=== PATIENT | male | born 1980 | race Caucasian/White ===

== ENCOUNTER 2024-03-26 16:58 | Emergency (ER) | payer OTHER, SELFPAY ==
--- NOTE | 2024-03-26 17:10 | XRR_ITS ---
PROCEDURE INFORMATION: Exam: XR Right Shoulder Exam date and time: 03/26/2024 5:44 PM Age: 44 years old Clinical indication: Pain; Upper arm; Right TECHNIQUE: Imaging protocol: Radiologic exam of the right shoulder. Views: 2 or more views. COMPARISON: No relevant prior studies available. FINDINGS: Bones/joints: Normal mineralization and alignment. No evidence of acute fracture or dislocation. Soft tissues: The soft tissues are within normal limits. XR/XR shoulder RT min 2V* [id number] IMPRESSION: No evidence of acute fracture or dislocation.
[2024-03-26 17:31] VITALS: BP 135/91; PULSE 71; RESP 16; TEMP 37.1; O2SAT 96; BMI 26.6
--- NOTE | 2024-03-26 17:59 | W.ED.EXTPRO ---
Documented by User: [email or web address] Eaton 03/26/24 18:24 HPI - Extremity Problem General: Chief complaint: Extremity Problem,Nontraumatic Stated complaint: right shoulder pain Time Seen by Provider: 03/26/24 17:46 Source: patient Mode of arrival: ambulatory Limitations: no limitations History of Present Illness: Patient is a 44-year-old male presenting to the emergency department complaining of acute on chronic right shoulder pain for the past 2 weeks. Patient notes he initially injured the shoulder approximately 5-6 years ago while in the , and since has just dealt with it with Tylenol as needed. He states it has not causing too much issues until 2 weeks ago when it suddenly started hurting him and has been constant since. He denies any new injuries or trauma. He does state that the pain is to the posterior right shoulder and radiates down the tricep, and sometimes he feels tingling in his fingers. No other symptoms noted at this time. Pain is sharp, currently has the pain in the emergency department. MD Complaint: extremity pain and joint pain Onset (ago): week(s) Pain Consistency: constant Location: right Quality: sharp Radiation: distal Relieving factors: nothing Exacerbating factors: range of motion Associated symptoms: Deny chest pain, fever(s) or rash Review of Systems General: Reports: 10 or more systems reviewed and unremarkable except in HPI and below Const: Denies: fever(s), chills or fatigue Eyes: Denies: change in vision ENMT: Denies: throat pain, ear or mastoid pain or nasal discharge Card: Denies: chest pain, palpitations, swelling of feet/ankles or lightheadedness Resp: Denies: dyspnea, productive cough or wheezing GI: Denies: abdominal pain, nausea, vomiting, diarrhea or constipation : Denies: flank pain, difficulty urinating, dysuria or urinary frequency Musc: Reports: extremity pain and joint pain; Denies: neck pain or back pain Skin/Breast: Denies: rash Neuro: Reports: numbness in extremities and sensory changes; Denies: headache(s) or weakness in extremities Physical Exam Const: COMMON NORMALS: no acute distress, patient oriented x3 and no limitations GENERAL APPEARANCE: cooperative, comfortable and well developed ORIENTATION/CONSCIOUSNESS: Yes awake, Yes oriented to person, Yes oriented to place and Yes oriented to time HENMT: COMMON NORMALS: normocephalic, atraumatic and hearing grossly normal bilaterally HEAD & SCALP: normocephalic and atraumatic Eye: COMMON NORMALS: Equal, round and reactive pupils present, EOMs intact bilaterally and conjunctivae normal CONJUNCTIVA: Yes conjunctivae normal PUPIL: Yes Equal, round and reactive pupils present Neck/C-Spine: COMMON NORMALS: full ROM, supple and no JVD Resp: COMMON NORMALS: normal respiratory effort, No retractions, No use of accessory muscles and clear to auscultation bilaterally AUSCULTATION: clear to auscultation bilaterally Cardio: COMMON NORMALS: no JVD, regular rate, regular rhythm, No clicks present (Cardio), No murmurs present (Cardio) and No rub (Cardio) RATE: regular rate RHYTHM: regular rhythm Extremity: COMMON NORMALS: normal to inspection, full ROM and capillary refill normal NARRATIVE EXTREMITY EXAM: Mild tenderness to palpation of the right scapular spine. No obvious signs of trauma, bruising, or dislocation. Distal neurovascular exam is intact. Neuro: COMMON NORMALS: patient oriented x3, moves all extremities, no focal motor deficits and no sensory deficits noted SENSORIUM/ORIENTATION: Yes oriented to person, Yes oriented to place and Yes oriented to time Psych: COMMON NORMALS: mental status grossly normal and Normal thought process present THOUGHT PROCESS: Normal thought process present Skin: COMMON NORMALS: no rashes or lesions noted GENERAL SKIN EXAM: no rashes or lesions noted Course Vital Signs: Vital signs: Vital Signs Temperature 98.7 F 03/26/24 18:32 Pulse Rate 71 03/26/24 18:32 Respiratory Rate 16 03/26/24 18:32 Blood Pressure 135/91 03/26/24 18:32 Pulse Oximetry 96 03/26/24 18:32 Oxygen Delivery Me thod Room Air 03/26/24 17:31 MDM - Extremity (Nontraumatic) Medical Decision Making Patient presented with acute on chronic right shoulder pain, initial injury was in the multiple years ago. Vitals normal on arrival. X-ray not demonstrate any acute fractures or dislocations. Neurovascular exam was intact, and patient was only minimally tender to palpation about the right scapular spine. He does note improvement after receiving shot of Decadron and Toradol. Will send home with these as well as a muscle relaxer and refer to Ortho for any further imaging or management. Patient agrees with plan and reasons to return are discussed. Lab Data Radiology Impressions Shoulder X-Ray 03/26/24 17:10 IMPRESSION: No evidence of acute fracture or dislocation. All radiology interpretation(s) finalized by discharge Discharge Plan Discharge Patient Disposition: Home Clinical Impression: Chronic pain in right shoulder Condition: Stable Prescriptions: New cyclobenzaprine 10 mg tablet 10 mg PO TID 5 Days Qty: 15 0RF prednisone 20 mg tablet 60 mg PO ONCE 5 Days Qty: 15 0RF ketorolac 10 mg tablet 10 mg PO Q8H PRN (Reason: pain) Qty: 15 0RF No Action bupropion HCl 75 mg tablet 150 mg PO BID Rx Instructions: administer 6 hours apart cholecalciferol (vitamin D3) 50 mcg (2,000 unit) capsule 50 mcg PO DAILY omeprazole 20 mg capsule,delayed release(DR/EC) 20 mg PO DAILY trazodone 100 mg tablet 100 mg PO ONCE PRN Discharge Orders: Discharge ED (Routine); Ordered 03/26/24 Ordered By: Samson Alas Referrals: Samson Yun MD [Primary Care Provider] - Discharge Diet: Usual diet Discharge Activity: Increase activity as tolerated Patient Instructions: Shoulder Pain (ED), Pain Management Activity Restrictions/Additional Instructions: Prednisone, Toradol, muscle relaxer as directed. Follow-up with Ortho as needed. Gentle range of motion exercises. Ice for added relief. Return with any new or concerning symptoms. Coding Level of Care Code ED Investigator Cash Shortage for Chg Fwd Documented by User: Neal Ortiz DO 03/27/24 07:07 HPI - Extremity Problem General: Chief complaint: Extremity Problem,Nontraumatic Stated complaint: right shoulder pain Time Seen by Provider: 03/26/24 17:46 Course Vital Signs: Vital signs: Vital Signs Temperature 98.7 F 03/26/24 18:32 Pulse Rate 71 03/26/24 18:32 Respiratory Rate 16 03/26/24 18:32 Blood Pressure 135/91 03/26/24 18:32 Pulse Oximetry 96 03/26/24 18:32 Oxygen Delivery Me thod Room Air 03/26/24 17:31 MDM - Extremity (Nontraumatic) Medical Decision Making Patient presented with acute on chronic right shoulder pain, initial injury was in the multiple years ago. Vitals normal on arrival. X-ray not demonstrate any acute fractures or dislocations. Neurovascular exam was intact, and patient was only minimally tender to palpation about the right scapular spine. He does note improvement after receiving shot of Decadron and Toradol. Will send home with these as well as a muscle relaxer and refer to Ortho for any further imaging or management. Patient agrees with plan and reasons to return are discussed. Chart reviewed Lab Data Radiology Impressions Shoulder X-Ray 03/26/24 17:10 IMPRESSION: No evidence of acute fracture or dislocation. Discharge Plan Discharge Patient Disposition: Home Clinical Impression: Chronic pain in right shoulder Condition: Stable Prescriptions: New cyclobenzaprine 10 mg tablet 10 mg PO TID 5 Days Qty: 15 0RF prednisone 20 mg tablet 60 mg PO ONCE 5 Days Qty: 15 0RF ketorolac 10 mg tablet 10 mg PO Q8H PRN (Reason: pain) Qty: 15 0RF No Action bupropion HCl 75 mg tablet 150 mg PO BID Rx Instructions: administer 6 hours apart cholecalciferol (vitamin D3) 50 mcg (2,000 unit) capsule 50 mcg PO DAILY omeprazole 20 mg capsule,delayed release(DR/EC) 20 mg PO DAILY trazodone 100 mg tablet 100 mg PO ONCE PRN Discharge Orders: Discharge ED (Routine); Ordered 03/26/24 Ordered By: Samson Alas Referrals: Samson Yun MD [Primary Care Provider] - Discharge Diet: Usual diet Discharge Activity: Increase activity as tolerated Patient Instructions: Shoulder Pain (ED), Pain Management Activity Restrictions/Additional Instructions: Prednisone, Toradol, muscle relaxer as directed. Follow-up with Ortho as needed. Gentle range of motion exercises. Ice for added relief. Return with any new or concerning symptoms. Coding Level of Care Code ED Investigator Cash Shortage for Brunilda Staples
[2024-03-26] MEDS: dexamethasone 10 mg/mL INJ 8 MG IM (18:06)
[2024-03-26] MEDS: ketorolac 60 mg/2 mL INJ IM (18:07)
[2024-03-26 18:32] VITALS: BP 135/91; PULSE 71; RESP 16; TEMP 37.1; O2SAT 96
--- NOTE | 2024-03-28 20:31 | DCPLANNER ---
Message sent to Ortho for referral
== END 2024-03-26 18:33 | disposition home or self-care (01) ==
PROVIDERS: Emergency Provider Physician Assistant; PCP Family Medicine
DX: G89.29 Other chronic pain (principal); M25.511 Pain in right shoulder
CPT/HCPCS: 73030; 96372; 99284; J1100; J1885

== ENCOUNTER 2024-09-23 20:59 | Emergency (ER) | payer OTHER, SELFPAY ==
[2024-09-23] VITALS (7 sets, daily range): BP systolic 109–125; BP diastolic 80–90; PULSE 63–120; RESP 18; TEMP 36.7; O2SAT 95–99; BMI 26.4
--- NOTE | 2024-09-23 21:20 | XRR_ITS ---
PROCEDURE INFORMATION: Exam: XR Right Finger(s) Exam date and time: 09/23/2024 9:32 PM Age: 44 years old Clinical indication: Injury or trauma; Other: Smashed middle and ring finger with table; Blunt trauma (contusions or hematomas); Right; Middle finger and ring finger TECHNIQUE: Imaging protocol: Radiologic exam of the right fingers. Views: Minimum 2 views. COMPARISON: No relevant prior studies available. FINDINGS: Bones/joints: There is a vertical minimally fracture of the tuft of the distal phalanx of the middle finger. No intra-articular extension. No dislocation. No other fracture. Soft tissues: Soft tissue defect at the tip of the middle finger. XR/XR finger RT min 2V [id number] IMPRESSION: Vertical minimally fracture of the distal phalanx of the middle finger with overlying soft tissue defect.
--- NOTE | 2024-09-23 21:55 | W.ED.WOUNDLC ---
HPI - Wound/Laceration General: Chief Complaint: Wound/Laceration Stated Complaint: rt middle finger crushing inj Time Seen by Provider: 09/23/24 21:36 Source: patient and family Mode of arrival: ambulatory Limitations: no limitations History of Present Illness: Patient is a nice 44-year-old male who presents to ED today with a complaint of a crush injury to his right third and fourth digits that he sustained just prior to arrival after he was moving a heavy oak table and accidentally smashed the fingers. Last tetanus is up-to-date. Onset (ago): hour(s) Extremity Location: Right: hand Place: home Patient tetanus UTD: Yes Context: accidental Associated symptoms: Reports no associated symptoms Related Data Home Medications Medication Instructions Recorded Confirmed bupropion HCl 75 mg tablet 150 mg PO BID 09/17/23 09/17/23 cholecalciferol (vitamin D3) 50 50 mcg PO DAILY 09/17/23 09/17/23 mcg (2,000 unit) capsule omeprazole 20 mg capsule,delayed 20 mg PO DAILY 09/17/23 09/17/23 release trazodone 100 mg tablet 100 mg PO ONCE PRN 09/17/23 09/17/23 Previous Rx's Medication Instructions Recorded ketorolac 10 mg tablet 10 mg PO Q8H PRN pain #15 tabs 03/26/24 cephalexin 500 mg capsule 500 mg PO Q6H 7 days #28 caps 09/23/24 Allergies Allergy/AdvReac Type Severity Reaction Status Date / Time No Known Allergies Allergy Verified 09/23/24 21:16 Review of Systems Musc: Reports: extremity pain (distal R 3rd/4th digits) Skin/Breast: Reports: other (small lac R middle finger) Neuro: Denies: numbness in extremities, weakness in extremities or sensory changes Physical Exam Const: COMMON NORMALS: no acute distress, average body habitus, patient oriented x3, no limitations, healthy appearing, alert and well nourished Extremity: COMMON NORMALS: capillary refill normal GENERAL: Yes normal exam except as noted RIGHT UPPER EXTREMITY: Yes hand & digits Right hand and digits: Yes ROM exam (normal), Yes neurovascular exam (normal) and Yes tendon exam (normal) OTHER: pt has edema/ecchymosis involving distal ends of R 3rd/4th digits; small subungual hematoma to 3rd nail; he has a very small 4mm laceration to distal tip of 3rd finger Neuro: COMMON NORMALS: patient oriented x3, moves all extremities, no focal motor deficits and no sensory deficits noted SENSORIUM/ORIENTATION: Yes alert Skin: NARRATIVE SKIN EXAM: see above Course Vital Signs: Vital signs: Vital Signs Temperature 98.0 F 09/23/24 21:05 Pulse Rate 66 09/23/24 21:52 Respiratory Rate 18 09/23/24 21:52 Blood Pressure 109/90 09/23/24 21:52 Pulse Oximetry 96 09/23/24 21:52 Oxygen Delivery Me thod Room Air 09/23/24 21:52 MDM - Wound/Laceration Medical Decision Making XR showing distal phalanx fx. Will splint and [facility] Wound care/infection precautions discussed. Extremely small lac does not require repair. Will place on prophylactic antibiotics Medical Records I reviewed the patient's medical records. XR interpretation done by ED provider, pending radiology final review Discharge Plan Discharge Patient Disposition: Home Clinical Impression: Fracture of distal phalanx of right middle finger Qualifiers: Encounter type: initial encounter Fracture type: closed Fracture alignment: nondisplaced Qualified Code(s): S62.662A - Nondisplaced fracture of distal phalanx of right middle finger, initial encounter for closed fracture Condition: Stable Prescriptions: New cephalexin 500 mg capsule 500 mg PO Q6H 7 Days Qty: 28 0RF No Action bupropion HCl 75 mg tablet 150 mg PO BID Rx Instructions: administer 6 hours apart cholecalciferol (vitamin D3) 50 mcg (2,000 unit) capsule 50 mcg PO DAILY omeprazole 20 mg capsule,delayed release(DR/EC) 20 mg PO DAILY trazodone 100 mg tablet 100 mg PO ONCE PRN ketorolac 10 mg tablet 10 mg PO Q8H PRN (Reason: pain) Qty: 15 0RF Discharge Orders: Discharge ED (Routine); Ordered 09/23/24 Ordered By: Yasmeen Figueroa Referrals: Samson Yun MD [Primary Care Provider] - Activity Restrictions/Additional Instructions: As we discussed, [facility] may refer you to ortho or hand surgery if indicated although these fractures will heal without specialty intervention. As we discussed, keep wounds clean with warm soap and water and monitor for signs of infection. Stay in your finger splint until follow up. Coding Level of Care Code ED Box Toe Stitcher for Brunilda Staples
== END 2024-09-23 22:52 | disposition home or self-care (01) ==
PROVIDERS: Emergency Provider Physician Assistant; PCP Family Medicine
DX: S62.662A Nondisplaced fracture of distal phalanx of right middle finger, initial encounter for closed fracture (principal); X58.XXXA Exposure to other specified factors, initial encounter
CPT/HCPCS: 73140; 99283

== ENCOUNTER → 2024-10-05 10:41 | Outpatient (BNVA) | payer OTHER, SELFPAY | PROVIDERS: PCP Family Medicine; Referring Provider Family Medicine; Visit Provider Nurse Practitioner | DX: S62.632A Displaced fracture of distal phalanx of right middle finger, initial encounter for closed fracture; W20.8XXA Other cause of strike by thrown, projected or falling object, initial encounter | CPT/HCPCS: 26750; 73130; 99204 ==

== ENCOUNTER → 2024-11-12 10:31 | Outpatient (BNVA) | payer OTHER, SELFPAY | PROVIDERS: PCP Family Medicine; Visit Provider Nurse Practitioner | DX: S62.632A Displaced fracture of distal phalanx of right middle finger, initial encounter for closed fracture; W20.8XXA Other cause of strike by thrown, projected or falling object, initial encounter | CPT/HCPCS: 73130; 99024 ==

== ENCOUNTER 2025-03-24 10:42 | Outpatient (RCR) | payer OTHER, SELFPAY | END 2025-04-09 23:59 | disposition home or self-care (01) | LOC: SPT 10:42 | PROVIDERS: Visit Provider Family Medicine | DX: L73.2 Hidradenitis suppurativa (principal); D48.5 Neoplasm of uncertain behavior of skin; L73.8 Other specified follicular disorders; D22.5 Melanocytic nevi of trunk; M25.511 Pain in right shoulder | CPT/HCPCS: 11102; 97110; 97161; 99203 ==

== ENCOUNTER 2025-04-10 05:00 | Outpatient (RCR) | payer OTHER, SELFPAY | END 2025-05-09 23:59 | disposition home or self-care (01) | LOC: SPT 05:00 | PROVIDERS: Visit Provider Family Medicine | DX: M25.511 Pain in right shoulder (principal); D48.5 Neoplasm of uncertain behavior of skin; L73.2 Hidradenitis suppurativa; L73.8 Other specified follicular disorders; D22.5 Melanocytic nevi of trunk | CPT/HCPCS: 97110 ==

== ENCOUNTER 2025-05-10 05:00 | Outpatient (RCR) | payer OTHER, SELFPAY | END 2025-06-09 23:59 | disposition home or self-care (01) | LOC: SPT 05:00 | PROVIDERS: Visit Provider Family Medicine | DX: M25.511 Pain in right shoulder (principal); D48.5 Neoplasm of uncertain behavior of skin; L73.2 Hidradenitis suppurativa; L73.8 Other specified follicular disorders; D22.5 Melanocytic nevi of trunk | CPT/HCPCS: 97110 ==

== ENCOUNTER → 2025-05-11 08:46 | Outpatient (BNVA) | payer OTHER, SELFPAY | PROVIDERS: Visit Provider Surgery | DX: L98.9 Disorder of the skin and subcutaneous tissue, unspecified (principal) | CPT/HCPCS: 99203 ==

== ENCOUNTER 2025-06-10 06:30 | Outpatient (RCR) | payer OTHER, SELFPAY | END 2025-07-01 08:56 | disposition home or self-care (01) | LOC: SPT 06:30 | PROVIDERS: Visit Provider Family Medicine | DX: M25.511 Pain in right shoulder (principal); D48.5 Neoplasm of uncertain behavior of skin; L73.2 Hidradenitis suppurativa; L73.8 Other specified follicular disorders; D22.5 Melanocytic nevi of trunk | CPT/HCPCS: 97110 ==

== ENCOUNTER → 2025-09-01 08:05 | Outpatient (BNVA) | payer OTHER, SELFPAY | PROVIDERS: PCP Nurse Practitioner; Visit Provider Podiatrist Foot & Ankle Surgery | DX: M79.672 Pain in left foot (principal); S92.425A Nondisplaced fracture of distal phalanx of left great toe, initial encounter for closed fracture; W22.8XXA Striking against or struck by other objects, initial encounter; Y93.02 Activity, running | CPT/HCPCS: 73630; 99204 ==

== ENCOUNTER → 2025-09-26 07:40 | Outpatient (BNVA) | payer OTHER, SELFPAY | PROVIDERS: PCP Nurse Practitioner; Visit Provider Podiatrist Foot & Ankle Surgery | DX: S92.425A Nondisplaced fracture of distal phalanx of left great toe, initial encounter for closed fracture (principal); M79.672 Pain in left foot; W22.8XXA Striking against or struck by other objects, initial encounter | CPT/HCPCS: 73630; 99213 ==